=== PATIENT | female | born 1950 | race Hispanic/Latino ===

== ENCOUNTER 2016-10-24 22:45 | Emergency (ER) | payer BC, MEDICARE ==
[2016-10-24] MEDS ORDERED: DUONEB 0.5 MG-3 MG/3 ML SOLN IH ONE (23:25)
[2016-10-24 23:48] LABS: Hematocrit 36.5 % (30.3-42.9); Hemoglobin 11.6 gm/dl (10.1-14.3); Mean Corpuscular HGB Conc 32 % (30-34); Mean Corpuscular Hemoglobin 29 pg (28-32); Mean Corpuscular Volume 91 fl (79-97); Platelet Count 262 K/mm3 (140-440); Red Cell Distribution Width 14.1 % (13.2-15.2); White Blood Count 3.4 K/mm3 (4.5-11.0)
[2016-10-25 00:09] LABS: Anion Gap 19 mmol/L; BUN/Creatinine Ratio 18.57; Blood Urea Nitrogen 13 mg/dL (7-17); Calcium 8.6 mg/dL (8.4-10.2); Carbon Dioxide 24 mmol/L (22-30); Chloride 97.7 mmol/L (98-107); Glucose 185 mg/dL (65-100); Potassium 4.6 mmol/L (3.6-5.0); Sodium 136 mmol/L (137-145)
[2016-10-25] MEDS ORDERED: NACL ONE (00:19)
[2016-10-25] MEDS ORDERED: LASIX IV ONE (00:32)
--- NOTE | 2016-10-25 01:28 | Emergency Department Report ---
HPI - HPI HPI: This is a 65-year-old female who presents to the emergency department from home with complaint of a three-day history of shortness of breath and chest congestion. The patient says she has a cough and feels like she needs to bring something up out of the chest but is unable to do so. She says "I'm rattling." She denies any chest pain, back pain, fever, nausea, vomiting. The patient went to see a primary care doctor at the office of Dr. Christian/Lorna and says "they gave me a shot of something but it did nothing." Patient has some recent back surgery that was a spinal fusion and fixing her scoliosis and has been doing rehabilitation. She has a past medical history of asthma, non- insulin-dependent diabetes, coronary artery disease with ID in 1994 and hypertension. She denies tobacco abuse. The patient also does complain of some swelling to the bilateral lower extremities, mostly around the feet and ankles. <RYLEE ROMAN - Last Filed: 10/25/16 02:42> <BISMARK FARLEY - Last Filed: 10/25/16 04:06> - General Chief Complaint: Dyspnea/Respdistress Time Seen by Provider: 10/24/16 23:34 ED Past Medical Hx - Past Medical History Hx Hypertension: Yes Hx Heart Attack/AMI: Yes Hx Diabetes: Yes Hx Asthma: Yes - Surgical History Additional Surgical History: Back Surgery, Bilateral Knee replacement - Social History Smoking Status: Never Smoker Substance Use Type: None <RYLEE ROMAN - Last Filed: 10/25/16 02:42> <BISMARK FARLEY - Last Filed: 10/25/16 04:06> - Medications Home Medications: Home Medications Medication Instructions Recorded Confirmed Last Taken Type ALBUTEROL Inhaler [ProAir HFA 2 puff IH QID PRN #1 unit 10/25/16 Unknown Rx Inhaler] ALBUTEROL NEB's [Proventil 0.083% 2.5 mg IH TID PRN #30 neb 10/25/16 Unknown Rx NEBS] Furosemide [Lasix] 20 mg PO QDAY #5 tablet 10/25/16 Unknown Rx guaiFENesin [Mucinex] 1,200 mg PO Q12HR #14 tab 10/25/16 Unknown Rx ED Review of Systems ROS: Stated complaint: CHEST PAIN Other details as noted in HPI Comment: All other systems reviewed and negative Constitutional: denies: chills, fever Eyes: denies: eye pain, eye discharge, vision change Respiratory: cough, shortness of breath Cardiovascular: edema. denies: chest pain Gastrointestinal: denies: abdominal pain, nausea, diarrhea Genitourinary: denies: urgency, dysuria, discharge Musculoskeletal: denies: joint swelling, arthralgia Skin: denies: rash, lesions Neurological: denies: headache, weakness, paresthesias <RYLEE ROMAN S - Last Filed: 10/25/16 02:42> ROS: Stated complaint: CHEST PAIN Other details as noted in HPI <BISMARK FARLEY P - Last Filed: 10/25/16 04:06> Physical Exam - Physical Exam Vital Signs: Vital Signs 10/24/16 10/24/16 10/24/16 22:53 23:17 23:33 Temperature 98.6 F 98.6 F Pulse Rate 70 70 Pulse Rate [ 70 Posterior Bilateral] Respiratory 18 Rate Respiratory 18 Rate [Posterior Bilateral] Blood Pressure 136/69 Blood Pressure 136/69 [Right] O2 Sat by Pulse 96 100 Oximetry 10/24/16 23:47 Temperature Pulse Rate Pulse Rate [ 67 Posterior Bilateral] Respiratory Rate Respiratory 18 Rate [Posterior Bilateral] Blood Pressure Blood Pressure [Right] O2 Sat by Pulse Oximetry Physical Exam: GENERAL: The patient is well-developed well-nourished. HEENT: Normocephalic. Atraumatic. Extraocular motions are intact. Patient has moist mucous membranes. Pupils equal reactive to light bilaterally. NECK: Supple. Trachea is midline. CHEST/LUNGS: Coarse breath sounds heard throughout chest and even without auscultation. No tachypnea or accessory muscle use. There is no respiratory distress noted. HEART/CARDIOVASCULAR: Regular. There is no tachycardia. There is no gallop rub or murmur. ABDOMEN: Abdomen is soft, nontender. Patient has normal bowel sounds. There is no abdominal distention. SKIN: There is some mild nonpitting swelling to the bilateral feet and ankles. NEURO: The patient is awake, alert, and oriented. The patient is cooperative. The patient has no focal neurologic deficits. The patient has normal speech. MUSCULOSKELETAL: There is no tenderness or deformity. There is no limitation range of motion. There is no evidence of acute injury. <RYLEE ROMAN S - Last Filed: 10/25/16 02:42> - Physical Exam Vital Signs: Vital Signs 10/24/16 10/24/16 10/24/16 22:53 23:17 23:33 Temperature 98.6 F 98.6 F Pulse Rate 70 70 Pulse Rate [ 70 Posterior Bilateral] Respiratory 18 Rate Respiratory 18 Rate [Posterior Bilateral] Blood Pressure 136/69 Blood Pressure 136/69 [Right] O2 Sat by Pulse 96 100 Oximetry 10/24/16 23:47 Temperature Pulse Rate Pulse Rate [ 67 Posterior Bilateral] Respiratory Rate Respiratory 18 Rate [Posterior Bilateral] Blood Pressure Blood Pressure [Right] O2 Sat by Pulse Oximetry <BISMARK FARLEY P - Last Filed: 10/25/16 04:06> ED Course Vital Signs 10/24/16 10/24/16 10/24/16 22:53 23:17 23:33 Temperature 98.6 F 98.6 F Pulse Rate 70 70 Pulse Rate [ 70 Posterior Bilateral] Respiratory 18 Rate Respiratory 18 Rate [Posterior Bilateral] Blood Pressure 136/69 Blood Pressure 136/69 [Right] O2 Sat by Pulse 96 100 Oximetry 10/24/16 23:47 Temperature Pulse Rate Pulse Rate [ 67 Posterior Bilateral] Respiratory Rate Respiratory 18 Rate [Posterior Bilateral] Blood Pressure Blood Pressure [Right] O2 Sat by Pulse Oximetry <RYLEE ROMAN S - Last Filed: 10/25/16 02:42> Vital Signs 10/24/16 10/24/16 10/24/16 22:53 23:17 23:33 Temperature 98.6 F 98.6 F Pulse Rate 70 70 Pulse Rate [ 70 Posterior Bilateral] Respiratory 18 Rate Respiratory 18 Rate [Posterior Bilateral] Blood Pressure 136/69 Blood Pressure 136/69 [Right] O2 Sat by Pulse 96 100 Oximetry 10/24/16 23:47 Temperature Pulse Rate Pulse Rate [ 67 Posterior Bilateral] Respiratory Rate Respiratory 18 Rate [Posterior Bilateral] Blood Pressure Blood Pressure [Right] O2 Sat by Pulse Oximetry - Reevaluation(s) Reevaluation #1: 10/25/16 03:53 Patient had nuclear medicine study performed demonstrating normal. CT of the chest was performed as well demonstrating bronchial wall thickening consistent with bronchitis acute versus chronic. No other specific abnormalities were noted on the lung examination portion. There is mention of level T 11 superior plate compression deformity. Otherwise negative study. Patient does not have an oxygen requirement here. Clearly she has a lot of mucus and secretions that she is producing in her lungs. This does seem to be consistent with bronchitis. I feel she is safe for home. I have informed the patient of the findings of her CT and nuclear study. Again no sign of PE at this point. I feel she is appropriate for home. She is already on an antibiotic. More likely this is viral in nature however. <BISMARK FARLEY P - Last Filed: 10/25/16 04:06> - EJ/Peripheral Line Arm R Time Out Performed: Yes Indications: other (IV needed for CT angiography) Skin Cleansed in Sterile Fashion: Yes Size: 20 Dressing Placed: Tegaderm, tape Patient Tolerated Procedure: well <RYLEE ROMAN S - Last Filed: 10/25/16 02:42> ED Medical Decision Making - Lab Data Result diagrams: 10/24/16 23:36 10/24/16 23:36 - EKG Data EKG shows normal: sinus rhythm, axis (LAD), intervals, QRS complexes (q waves to anterior leads), ST-T waves Rate: normal - EKG Data When compared to previous EKG there are: previous EKG unavailable Interpretation: other (sinus, LAD, q waves to anterior leads. ) - Radiology Data Radiology results: image reviewed interpreted by me: Chest x-ray did not show any acute process. Heart is normal shape and size. No effusions. No pneumothorax. No signs of pneumonia seen. <RYLEE ROMAN S - Last Filed: 10/25/16 02:42> - Lab Data Result diagrams: 10/24/16 23:36 10/24/16 23:36 <BISMARK FARLEY P - Last Filed: 10/25/16 04:06> Critical care attestation.: If time is entered above; I have spent that time in minutes in the direct care of this critically ill patient, excluding procedure time. <RYLEE ROMAN S - Last Filed: 10/25/16 02:42> Critical care attestation.: If time is entered above; I have spent that time in minutes in the direct care of this critically ill patient, excluding procedure time. <BISMARK FARLEY P - Last Filed: 10/25/16 04:06> ED Disposition Is pt being admited?: No Time of Disposition: 02:44 <RYLEE ROMAN S - Last Filed: 10/25/16 02:42> <BISMARK FARLEY P - Last Filed: 10/25/16 04:06> Clinical Impression: Bronchitis, Shortness of breath Disposition: DISCHARGED TO HOME OR SELFCARE Condition: Stable Instructions: Acute Bronchitis (ED) Additional Instructions: Please follow-up with your primary care doctor in the next few days. Return to the emergency department with any worsening of your symptoms or any acute distress. Continue using her albuterol inhaler and nebulized treatments as needed for wheezing or shortness of breath. Continue with the antibiotics that were written for you by your primary care doctor. Prescriptions: ALBUTEROL Inhaler [ProAir HFA Inhaler] 2 puff IH QID PRN #1 unit PRN Reason: Shortness Of Breath ALBUTEROL NEB's [Proventil 0.083% NEBS] 2.5 mg IH TID PRN #30 neb PRN Reason: Wheezing Furosemide [Lasix] 20 mg PO QDAY #5 tablet guaiFENesin [Mucinex] 1,200 mg PO Q12HR #14 tab Referrals: PRIMARY CAREMD [Primary Care Provider] - 3-5 Days KARENA SAXENA MD [Staff Physician] - 3-5 Days
--- NOTE | 2016-10-25 01:56 | XRay Report ---
FINAL REPORT EXAM: XR CHEST 1V AP HISTORY: SOB COMPARISON: None available. FINDINGS: Frontal view(s) of the chest obtained. Cardiac silhouette within normal limits. No gross consolidation or effusion. No pneumothorax. Posterior fusion of the visualized lower thoracic and lumbar spine. IMPRESSION: No grossly acute findings.
[2016-10-25] MEDS ORDERED: MORPHINE IV ONE (02:11)
--- NOTE | 2016-10-25 02:46 | Cat Scan Report ---
FINAL REPORT EXAM: CT CHEST WO CON HISTORY: SOB COMPARISON: Chest x-ray from the same date. TECHNIQUE: Contiguous axial images were obtained. Additional sagittal and coronal reformatted images were obtained. FINDINGS: Heart upper limits of normal in size. Thoracic aorta normal in caliber. No pathologically enlarged intrathoracic or axillary lymph nodes. Mild calcification of the thoracic aorta. Mild bronchial wall thickening concerning for bronchitis. This may be acute or chronic. No focal consolidation or pleural effusion. Mild to moderate superior plate compression deformity at the T11 level. This appears to be chronic. Posterior fusion at the T11 level inferiorly involving the visualized upper lumbar spine. IMPRESSION: Mild bronchial wall thickening concerning for bronchitis which may be acute or chronic. No focal consolidation or pleural effusion. Mild to moderate superior plate compression deformity T11 level suspected to be chronic. Posterior fusion of the lower thoracic and visualized upper lumbar spine.
--- NOTE | 2016-10-25 03:22 | Nuclear Medicine Report ---
FINAL REPORT PROCEDURE: NM LUNG SCAN PERF/VENT TECHNIQUE: 5 mCi Tc-99m MAA was injected IV for pulmonary perfusion imaging in multiple projections. 15 MCi XE-[id number] was inhaled for pulmonary ventilation imaging in multiple projections. Injection site: RIGHT antecubital fossa. CPT 53366 REGULATORY GUIDELINES: The patient was released based upon guidelines established in [place] Regulations for Protection Against Radiation, Chapter 7841-58-59-35, Release of Individuals Containing Radioactive Drugs or Implants. HISTORY: SOb, elevated dimer COMPARISON: No prior studies are available for comparison. FINDINGS: Perfusion: No defects . Ventilation: No defects . IMPRESSION: Normal Examination
[2016-10-25 03:43] LABS: Anisocytosis 1+; Basophils % (Manual) 0 % (0.0-1.8); Blastocytes % (Manual) 0 %; Diff Status Complete; Eosinophils % (Manual) 0 % (0.0-4.3); Hypochromasia 1+
[2016-10-25 04:32] VITALS: BP 138/66
== END 2016-10-25 04:31 | disposition home or self-care (01) ==
LOC: ED 22:45
DX: J40 Bronchitis, not specified as acute or chronic (principal); I10 Essential (primary) hypertension; I25.2 Old myocardial infarction; E11.9 Type 2 diabetes mellitus without complications; J45.909 Unspecified asthma, uncomplicated
CPT/HCPCS: 36415; 36569; 71010; 71250; 78582; 80048; 83880; 84484; 85007; 85025; 85379; 93005; 93010; 94640; 96374; 96375; 99285; A9540; A9558; J1940; J2270